=== PATIENT | female | born 1955 | race Caucasian/White ===

== ENCOUNTER 2024-09-02 13:13 | Emergency (ER) | payer MEDICARE, BC ==
[~2024-09-02] VITALS: Ht 154.9 cm; Wt 39.1 kg
--- NOTE | 2024-09-02 13:30 | ELECTROCARDIOGRAPH REPORT ---
[facility] Test Date: 2024-09-02 Test Time: 13:29:09 Pat Name: [facility] Department: EMERGENCY ROOM [id number] Room: Gender: F [employer] Supervisor: : 1955 Requested By: CHIQUI BAILEY Order Number: [id number] Reading MD: Dr. Alex Leary Measurements Intervals [place] Rate: 93 P: 83 MN: 123 QRS: 86 QRSD: 71 T: 20 QT: 359 QTc: 447 Interpretive Statements A-V dual-paced complexes w/ some inhibition No further analysis attempted due to paced rhythm Electronically Signed On 09-02-2024 19:21:[address] Alex Leary Please click the below link to view image of tracing.
[2024-09-02 13:52] LABS: BASOPHILS # (AUTO) 0.1 X10'3 (0-0.2); BASOPHILS % (AUTO) 0.9 % (0-1); EOSINOPHILS # (AUTO) 0.1 X10'3 (0-0.9); EOSINOPHILS % (AUTO) 0.6 % (0-6); HEMOGLOBIN 11.4 g/dl (12.0-16.0); LYMPHOCYTES # (AUTO) 1.7 X10'3 (1.1-4.8); LYMPHOCYTES % (AUTO) 14.3 % (21-51); MEAN CORPUSCULAR HEMOGLOBIN 27.5 PG (27.0-31.0); MEAN CORPUSCULAR HGB CONC 31.8 g/dL (33.0-36.5); MEAN CORPUSCULAR VOLUME 86.6 FL (78-98); MEAN PLATELET VOLUME 8.2 FL (7.4-10.4); MONOCYTES # (AUTO) 0.9 X10'3 (0-0.9); MONOCYTES % (AUTO) 7.3 % (2-12); NEUTROPHILS # (AUTO) 9.2 X10'3 (1.8-7.7); NEUTROPHILS % (AUTO) 76.9 % (42-75); PLATELET COUNT 576 X10'3 (140-440); RED BLOOD COUNT 4.15 X10'6 (4.20-5.60); RED CELL DISTRIBUTION WIDTH 14.1 % (11.5-14.5); WHITE BLOOD COUNT 11.9 X10'3 (4.5-11.0)
[2024-09-02 14:04] LABS: ALANINE AMINOTRANSFERASE 18 U/L (12-78); ALBUMIN 3.3 G/DL (3.4-5.0); ALBUMIN/GLOBULIN RATIO 0.8 (1.1-1.5); ALKALINE PHOSPHATASE 111 IU/L (46-116); ANION GAP 8 (8-16); ASPARTATE AMINO TRANSFERASE 13 U/L (10-37); BILIRUBIN,TOTAL 0.4 MG/DL (0.1-1.0); BLOOD UREA NITROGEN 18 MG/DL (7-18); BUN/CREATININE RATIO 18.6 (10.0-20.0); CALCIUM 8.6 MG/DL (8.5-10.1); CHLORIDE 107 MMOL/L (99-107); CREATININE 0.97 MG/DL (0.40-0.90); GLUCOSE 96 MG/DL (70-104); POTASSIUM 4.6 MMOL/L (3.5-5.1); PRO BRAIN NATRIURETIC PEPTIDE 190 PG/ML (0-125); SODIUM 142 MMOL/L (135-145); TOTAL CARBON DIOXIDE 27.2 MMOL/L (24-32); TOTAL PROTEIN 7.6 G/DL (6.4-8.2); eCRCL 34 ML/MIN; eGFR 57 ML/MIN
--- NOTE | 2024-09-02 14:12 | RADIOLOGY REPORT ---
CHEST RADIOGRAPH Indication: CP Technique: Single frontal view of the chest was obtained Comparison: None FINDINGS: Lines and Tubes: None Lungs: Right perihilar infiltrate. Recommend follow-up chest x-ray or CT of the chest with contrast. Pleura: No effusion. No pneumothorax. Cardiomediastinal contours: Unremarkable Bones: No acute osseous abnormality. IMPRESSION: 1. Right perihilar infiltrate suprahilar consolidation. 2. Recommend follow-up chest x-ray and/or CT of the chest with IV contrast.
--- NOTE | 2024-09-02 14:43 | Physician Documentation ---
History of Present Illness ~ Chief Complaint: Shortness of Breath Stated Complaint: COUGH/DIFF BREATHING SINCE 05/07/2024 Time Seen by MD: 15:50 OK to notify your PCP?: Yes HPI This 69-year-old female presents with four months of right upper chest pain, cough, and shortness of breath. Patient reports he 50 pack year smoking history and stop smoking one-week prior. Patient reports that she has been unable to do the things that she usually does over the past several months because she quickly gets short of breath. She describes that when she takes deep breath she will feel a popping and pulling sensation in her right upper lung. She also endorses some weight loss over the past several months about 12 lb. She denies any fever, chills or any other associated symptoms. Medication Reconciliation Allergies: Coded Allergies: Penicillins (Verified Allergy, Unknown, 09/02/24) Scheduled Azithromycin (Zithromax), 1 TAB PO UD Prednisone* (Prednisone*), 1 TAB PO DAILY Scheduled PRN albuterol inhaler (Pro-Air Inhaler), 2 PUFFS INH Q4HPRN PRN for wheezing Miscellaneous Medications Home Med List (No Home Medications), (Reported) Review of Systems All Other Systems at this time: Reviewed and Negative Physical Exam Vital Signs: RN Vital Signs have been reviewed: Yes, Temperature: 97.8, Source: Temporal, Heart Rate: 103, Respiratory Rate: 18, BP: 143/93, Pulse Oximetry: 97, Weight: 39.100 Physical Exam I have reviewed the triage vitals. CONST: Well developed and well nourished. In no acute distress HENT: Head Atraumatic EYES: Pupils are equal, round and reactive to light. Normal conjunctiva NECK: Normal range of motion. Supple. CARDIO: Normal rate and regular rhythm. No murmurs, rubs, or gallops. S1, S2. PULM/CHEST: No respiratory distress. Sparse wheezes auscultated bilaterally. ABD: Soft and nontender. Nondistended. Bowel sounds normal. No guarding. : Exam deferred MSK: No edema. No deformity. NEURO: Alert and oriented to person, place and time. Moving all extremities SKIN: Warm and dry. PSYCH: Normal mood and affect. Good eye contact. Progress Progress Note 191: The case was discussed with Dr. Penn who stated that the patient sjould follow up with Dr. Brasher for FNA. Results/Orders Results/Orders Orders - ANNY LEARY MD [facility] (09/02/24 18:34) Fill Out Med Reconciliation (09/02/24 18:34) Completed Orders - ANNY LEARY MD Azithromycin Tablet (Zithromax Tablet) (09/02/24 19:45) Azithromycin Tablet (Zithromax Tablet) (09/02/24 19:45) Vital Signs 09/02/24 09/02/24 09/02/24 09/02/24 13:22 16:02 16:13 16:55 Temp 97.8 Pulse 103 99 76 Resp 18 26 18 12 B/P (MAP) 143/93 156/84 (108) Pulse Ox 97 96 98 O2 Delivery Room Air* O2 Flow Rate 0 0 FiO2 21 09/02/24 09/02/24 09/02/24 17:01 17:09 18:00 Temp 97.8 Pulse 93 81 92 Resp 16 19 19 B/P (MAP) 163/85 (111) 156/86 (109) Pulse Ox 98 95 94 O2 Delivery Room Air* O2 Flow Rate 0 0 0 FiO2 21 Laboratory Tests Test 09/02/24 13:30 09/02/24 15:31 White Blood Count 11.9 H Red Blood Count 4.15 L Hemoglobin 11.4 L Hematocrit 36.0 Mean Corpuscular Volume 86.6 Mean Corpuscular Hemoglobin 27.5 Mean Corpuscular Hemoglobin Concent 31.8 L Red Cell Distribution Width 14.1 Platelet Count 576 H Mean Platelet Volume 8.2 Neutrophils (%) (Auto) 76.9 H Lymphocytes (%) (Auto) 14.3 L Monocytes (%) (Auto) 7.3 Eosinophils (%) (Auto) 0.6 Basophils (%) (Auto) 0.9 Neutrophils # (Auto) 9.2 H Lymphocytes # (Auto) 1.7 Monocytes # (Auto) 0.9 Eosinophils # (Auto) 0.1 Basophils # (Auto) 0.1 CBC Comment Sodium Level 142 Potassium Level 4.6 Chloride Level 107 Carbon Dioxide Level 27.2 Anion Gap 8 Blood Urea Nitrogen 18 Creatinine 0.97 H Estimated GFR/1.73 m2 57 BUN/Creatinine Ratio 18.6 Glucose Level 96 Calcium Level 8.6 Total Bilirubin 0.4 Aspartate Amino Transf (AST/SGOT) 13 Alanine Aminotransferase (ALT/SGPT) 18 Alkaline Phosphatase 111 Troponin I High Sensitivity 9 10 Pro-B-Type Natriuretic Peptide 190 H Total Protein 7.6 Albumin 3.3 L Globulin 4.3 Albumin/Globulin Ratio 0.8 L Chemistry Comments Troponin I High Sens Percent Delta 11 Troponin I Hi Sens Absolute Change 1 Re-Evaluation Re-evaluation : Re-Evaluation: Unchanged EKG/XRAY/CT/US/VASC/MRI EKG : Additional Comment EKG interpreted by ALON Bailey shows normal sinus rhythm at a rate of 93, normal axis, no NM intervals. No ischemia Chest X-Ray : Additional Comments CHEST RADIOGRAPH Indication: CP Technique: Single frontal view of the chest was obtained Comparison: None FINDINGS: Lines and Tubes: None Lungs: Right perihilar infiltrate. Recommend follow-up chest x-ray or CT of the chest with contrast. Pleura: No effusion. No pneumothorax. Cardiomediastinal contours: Unremarkable Bones: No acute osseous abnormality. IMPRESSION: 1. Right perihilar infiltrate suprahilar consolidation. 2. Recommend follow-up chest x-ray and/or CT of the chest with IV contrast. : Impression INDICATION: r/o PE as well as consolidation seen on CXR in [facility] COMPARISON: None TECHNIQUE: Multidetector CTA of the chest was performed of the chest with 100 cc of intravenous contrast. PULMONARY ANGIOGRAPHY PROTOCOL was utilized using a emmy saul-tracking technique centered on the main pulmonary artery. Axial, coronal and sagittal multiplanar and MIP reformats were performed. Radiation Dose Information: CT Dose: CTDI volume is 13 0.1 7 mGy. Dose-length product is 207.25 mGy*cm The dose indicators for CT are the volume Computed Tomography (CT) Dose Index (CTDIvol) and the Dose Length Product (DLP), and are measured in units of mGy and mGy-cm, respectively. These indicators are not patient dose, but values generated from the CT scanner acquisition factors. The report includes radiation exposure data for exposures received during this examination. Findings: Pulmonary artery: Normal caliber of the pulmonary artery. No large central or large segmental pulmonary embolism. Lower neck: Normal thyroid. Lungs: Consolidation right upper lobe perihilar region and Rosa mediastinal region invading the mediastinum anterior to the trachea extending of the right hilum findings suggest neoplasm. In the left upper lobe is a 2 x 1. Cm spiculated mass worrisome for metastatic disease. Pretracheal space completely opacified to the bifurcation of the trachea with narrowing of the right upper lobe bronchus. Findings of emphysema and COPD in the apices bilaterally. 9 mm noncalcified nodule in the left in the suprahilar area anteriorly series 3 image 32. Left perihilar adenopathy. Heart/Vascular Structures: Normal heart size. Normal caliber and enhancement of the aorta. No filling defects in the pulmonary arteries or enlargement of the pulmonary artery to suggest pulmonary artery hypertension. Lymph Nodes: No adenopathy Pleura: No pleural effusion or significant pneumothorax. Musculoskeletal: No acute osseous abnormality. Upper abdomen: Limited portions of the upper abdomen are unremarkable. Hepatic steatosis IMPRESSION: 1. No pulmonary embolism. 2. No findings of pulmonary artery hypertension. 3. Large spiculated mass right upper lung field measuring 8.4 x 5.3 x 7.8 cm. 4. 2 pulmonary nodules left upper lung field worrisome for metastatic disease. 5. Emphysematous changes and findings of COPD. 6. Recommend PET scan or percutaneous biopsy. Electronically Signed by:ZEV LORENZ Jr., DO Date & Time: 09/02/24 183 Medical Decision Making Findings MSE performed in triage and patient returned to ED lobby by nursing staff Differential Dx:Considerations: Include: bronchitis, CHF, COPD, pneumonia, pneumonitis, pneumothorax, pulmonary embolism, respiratory distress Departure Time of Disposition: 19:30 Disposition: 01 HOME / SELF CARE / HOMELESS Impression: Primary Impression: Spiculated mass Additional Impressions: Pneumonia Emphysema COPD (chronic obstructive pulmonary disease) Weight loss Additional Impression Text Patient is instructed to find a primary physician tomorrow. Condition: Stable Discharge Instructions: Shortness of Breath, Adult, [id number] Referrals: NO PRIMARY CARE PROVIDER (PCP) ISA EDWARDS MD Prescriptions albuterol inhaler (Pro-Air Inhaler) 8.5 Gm Inhaler 2 PUFFS INH Q4HPRN PRN for wheezing for 30 Days, #18 GM Prov: ANNY LEARY MD 09/02/24 Prednisone* (Prednisone*) 20 Mg Tablet 1 TAB PO DAILY for 5 Days, #5 TAB Prov: ANNY LEARY MD 09/02/24 Azithromycin (Zithromax) 250 Mg Tablet 1 TAB PO UD for 4 Days, #4 TAB 2 the first day followed by 1 for days 2-5 Prov: ANNY LEARY MD 09/02/24 Additional Comment Additional Comment Patient was signed out to me at shift change for admission. Patient is presumptive diagnosis is pneumonia emphysema COPD and spiculated mass. Patient was refusing admission did not know her diagnosis. She is requesting outpatient management does not have a PMD we discussed the need for fine-needle aspiration. I discussed the case with our ICU doctor who recommended outpatient pulmonology with Dr. Yeny FELDMAN. Referral was then given. Per ICU Lopressor so can see the patient does not necessarily need a referral from a primary care physician. If not the patient was told to return if she has worsening symptoms fevers cough phlegm. Patient does admit to weight loss and a heavy smoking history she was very thin and frail but I was unable to convince her to stay for medical management and treatment. Including additional workup for brain mass or Mets to the abdomen. Signature Scribe Signature: Scribed for Anny Leary MD by Azalea Ruiz . 09/02/24 19:37 Departure Attestation: The note accurately reflects work and decisions made by me.Anny Leary MD 09/02/24 19:26 DAVID BORJA Sep 02, 2024 14:43 CHIQUI BAILEY MD Sep 02, 2024 16:17 ANNY LEARY MD Sep 02, 2024 19:26 AZALEA BETTS Sep 02, 2024 19:33
[2024-09-02] MEDS: albuterol 2.5 MG/3 ML nebule NEB ONE (16:52)
[2024-09-02] MEDS: predniSONE 20 mg tablet PO ONE (16:53)
[2024-09-02] MEDS: normal saline 1000ml 1,000 ML IV ONE (16:53)
[2024-09-02 16:55] VITALS: PULSE 76; RESP 12; O2SAT 98
[2024-09-02 17:01] VITALS: PULSE 93; RESP 16; O2SAT 98
[2024-09-02 17:09] VITALS: TEMP 97.8
[2024-09-02] MEDS ORDERED: iohexol 350MG/ML 100ml bottle IV ONE (17:18)
[2024-09-02 18:00] VITALS: BP 156/86; PULSE 92; RESP 19; O2SAT 94
--- NOTE | 2024-09-02 18:34 | RADIOLOGY REPORT ---
INDICATION: r/o PE as well as consolidation seen on CXR in [facility] COMPARISON: None TECHNIQUE: Multidetector CTA of the chest was performed of the chest with 100 cc of intravenous contr ast. PULMONARY ANGIOGRAPHY PROTOCOL was utilized using a bolus-tracking technique centered on the panda n pulmonary artery. Axial, coronal and sagittal multiplanar and MIP reformats were performed. Radiation Dose Information: CT Dose: CTDI volume is 13 0.1 7 mGy. Dose-length product is 207.25 mGy*cm The dose indicators for CT are the volume Computed Tomography (CT) Dose Index (CTDIvol) and the Dose Length Product (DLP), and are measured in units of mGy and mGy-cm, respectively. These indicators are not patient dose, but values generated from the CT scanner acquisition factors. The report includes radiation exposure data for exposures received during this examination. Findings: Pulmonary artery: Normal caliber of the pulmonary artery. No large central or large segmental pulmo nary embolism. Lower neck: Normal thyroid. Lungs: Consolidation right upper lobe perihilar region and Rosa mediastinal region invading the media stinum anterior to the trachea extending of the right hilum findings suggest neoplasm. In the left up per lobe is a 2 x 1. Cm spiculated mass worrisome for metastatic disease. Pretracheal space completel y opacified to the bifurcation of the trachea with narrowing of the right upper lobe bronchus. Findin gs of emphysema and COPD in the apices bilaterally. 9 mm noncalcified nodule in the left in the supra hilar area anteriorly series 3 image 32. Left perihilar adenopathy. Heart/Vascular Structures: Normal heart size. Normal caliber and enhancement of the aorta. No filling defects in the pulmonary arteries or enlargement of the pulmonary artery to suggest pulmonary artery hypertension. Lymph Nodes: No adenopathy Pleura: No pleural effusion or significant pneumothorax. Musculoskeletal: No acute osseous abnormality. Upper abdomen: Limited portions of the upper abdomen are unremarkable. Hepatic steatosis IMPRESSION: 1. No pulmonary embolism. 2. No findings of pulmonary artery hypertension. 3. Large spiculated mass right upper lung field measuring 8.4 x 5.3 x 7.8 cm. 4. 2 pulmonary nodules left upper lung field worrisome for metastatic disease. 5. Emphysematous changes and findings of COPD. 6. Recommend PET scan or percutaneous biopsy.
[2024-09-02] MEDS: azithromycin/NS 500mg/250ml 250 ML IV ONE (18:35)
[2024-09-02] MEDS ORDERED: NO HOME MEDS (19:30)
[2024-09-02] MEDS: CefTRIAXone/D5W-Rocephin 1gm 50 ML IV ONE (19:30)
[2024-09-02] MEDS ORDERED: ALBU8HFA INH (19:45)
[2024-09-02] MEDS ORDERED: PRED20TA PO (19:45)
[2024-09-02] MEDS ORDERED: AZIT250T3 PO (19:45)
[2024-09-02] MEDS: azithromycin 250mg tablet PO STA (19:46)
[2024-09-02] MEDS: azithromycin 250mg tablet PO ONE (19:53)
== END 2024-09-02 20:00 | disposition home or self-care (01) ==
LOC: ER 13:14
DX: J18.9 Pneumonia, unspecified organism (principal); J43.9 Emphysema, unspecified; J44.0 Chronic obstructive pulmonary disease with (acute) lower respiratory infection; R63.4 Abnormal weight loss; Z87.891 Personal history of nicotine dependence; Z88.0 Allergy status to penicillin
CPT/HCPCS: 36415; 71045; 71275; 80053; 83880; 84484; 85025; 93005; 94640; 96361; 96365; 99285; J0696; J7030; J7512; Q9967; 94760